=== PATIENT | male | born 1985 | race Two or more races ===

== ENCOUNTER 2023-05-23 12:35 | Emergency (ER) | payer BC ==
[~2023-05-23] VITALS: Ht 170.2 cm; Wt 81.2 kg
[2023-05-23 13:38] LABS: HEMATOCRIT 45.8 % (39.0-48.0); HEMOGLOBIN 16.1 g/dL (13-16.00); MEAN CORPUSCULAR HEMOGLOBIN 30.3 pg (27.00-32.0); MEAN CORPUSCULAR HGB CONC 35.2 g/dl (32.0-36.0); PLATELET COUNT 248 K/uL (150-450); RED BLOOD COUNT 5.33 M/uL (4.00-6.00); RED CELL DISTRIBUTION WIDTH 13.5 % (11.5-14.5)
== END 2023-05-23 14:51 | disposition home or self-care (01) ==
LOC: ER 12:37
DX: B34.9 Viral infection, unspecified (principal); R53.81 Other malaise; Z20.822 Contact with and (suspected) exposure to COVID-19